=== PATIENT | female | born 1970 | race Caucasian/White ===

== ENCOUNTER → 2017-01-31 | Day surgery (SDC) | payer OTHER ==
[~2017-01-31] VITALS: Ht 152.4 cm; Wt 99.8 kg
[~2017-01-31] MED LIST: ACETAMINOPHEN 650 MG SUPP As Ordered ONE; BUPIVACAINE/EPIN 0.25% 30 ML VIAL As Ordered ONE; BUSP5TA PO; FLUORESCEIN 10% (100MG/ML) 5 ML VIAL As Ordered ONE; GLYCOPYRROLATE INJ 0.2 MG/ML 2 ML VIAL As Ordered ONE; HYDR25TAB PO; HYDROmorphone HCL 1 MG/ML SYRINGE (J1170) IV PRN; IBUPROFEN 800 MG TAB PO SCH; KETOROLAC 30 MG/ML VIAL (J1885) IV PRN; KETOROLAC 60 MG/2 ML VIAL (J1885) As Ordered ONE; LIDOCAINE 2% INJ 100 MG/5 ML SDV (FOR ANES.) As Ordered ONE; LR 1,000 ML IV SCH; MEPERIDINE INJ 25 MG/ML VIAL (J2175) As Ordered ONE; METHYLENE BLUE 0.5% (5MG/ML) 10 ML AMP (PROVAYBLUE)(Q9968 PER 1MG) As Ordered ONE; METOCLOPRAMIDE INJ 10MG/2ML VIAL (J2765) As Ordered ONE; MIDAZOLAM INJ 2 MG/2 ML VIAL (J2250) As Ordered ONE; NEOSTIGMINE 1MG/ML 5 ML SYRINGE (J2710) As Ordered ONE; OMEP20CA3 PO; ONDANSETRON 4MG/2ML VIAL (J2405) As Ordered ONE; ONDANSETRON 4MG/2ML VIAL (J2405) IV PRN; PERCOCET 5MG/325MG TAB PO PRN; PERCOCET PO; PROPOFOL 200 MG/20 ML VIAL As Ordered ONE; ROCURONIUM BROMIDE 50 MG/5 ML VIAL As Ordered ONE; dexameTHASONE 4 MG/ML 1ML VIAL (J1100) As Ordered ONE; diphenhydrAMINE INJ 50MG/ML VIAL (J1200) IV PRN; fentaNYL 100 MCG/2 ML INJECTION (J3010) As Ordered ONE; fentaNYL 100 MCG/2 ML INJECTION (J3010) IV PRN
[2017-01-31 08:54] LABS: MEAN CORPUSCULAR HEMOGLOBIN 29.3 pg (27.0-33.0); MEAN CORPUSCULAR HGB CONC 33.5 g/dl (32.0-36.5); MEAN CORPUSCULAR VOLUME 87.6 fl (80.0-96.0); RED CELL DISTRIBUTION WIDTH 12.2 % (11.5-14.5); WHITE BLOOD COUNT 7.6 K/mm3 (4.0-10.0)
[2017-01-31] MEDS: MEPERIDINE INJ 25 MG/ML VIAL (J2175) IV PRN ×2 (13:28→13:40)
[2017-01-31 16:00] VITALS: BP 123/74
--- NOTE | 2017-01-31 21:34 | RO ---
DATE OF PROCEDURE: 01/31/2017 June is a 48-year-old female, status post hysterectomy with a history of left ovarian cyst and extensive pelvic pain. After counseling, a decision was made for an operative laparoscopy, removal of the left pelvic mass, possible lysis of adhesions. PREOPERATIVE DIAGNOSIS: 1. Left ovarian cyst. 2. Pelvic pain. POSTOPERATIVE DIAGNOSIS: 1. Left ovarian cyst. 2. Pelvic pain. 3. Hydrosalpinx with right ovarian cyst, bowel and omental adhesion. PROCEDURE: 1. Operative laparoscopy. 2. Removal of both tubes and ovaries and pelvic mass. 3. Extensive lysis of adhesion. 4. Cystoscopy. SURGEON: Dr. Ham Arriaza EMBEDDED LINUX ENGINEER: ANESTHESIA: Upon laparoscopy, the omentum was found to be adherent to the anterior abdominal wall, the left pelvic sidewall, the posterior cul-de-sac and the right pelvic sidewall, along with multiple loops of bowel. The right ovary was also adherent to the posterior cul-de-sac as well as a right hydrosalpinx noted adherent to the vaginal cuff. The left ovary was buried on the sidewall with the adhesions, bowel and omental adhesions to that side. It took approximately 40 minutes to lyse the adhesions prior to being able to identify the ovaries and the hydrosalpinx. Cystoscopy bilateral ureters were identified with yellow dye coming out of both ureters. No evidence of any bladder injury. DESCRIPTION OF PROCEDURE: After obtaining informed consent, the patient was taken to the operating room where general anesthetic was found to be adequate. She was then draped and prepped in the usual sterile fashion in the dorsal lithotomy position. At this point, a Hackett catheter was placed in the bladder for drainage. A sponge stick was placed in the vagina for manipulation. We then turned our attention to the abdomen where a 5 mm infraumbilical incision was made. Using the Veress needle, the abdomen was then insufflated with CO2 gas to approximately 3.5 liters. I then placed a 5 mm right lateral port under direct visualization and a 12 mm port was placed on the left side under direct visualization. Upon entering the abdominal cavity, multiple omental adhesions and loops of bowel were noted to be adherent to the posterior cul-de-sac, the sidewall, the vaginal cuff. We were unable to fully visualize the pelvic anatomy. The patient was placed in Trendelenburg to push the bowel slightly cephalad. At this point, using the KEYLA Harmonic scalpel with a series of blunt and sharp dissection, the omental adhesions to the anterior abdominal wall were taken down as well as the one to the vaginal cuff and the pelvic sidewall. After retracting the omental adhesions, we were able to identify the right ovary, which was adherent to the vaginal cuff as well as the lateral wall. The Falope segment of the fallopian tube was found with the hydrosalpinx adherent to the vaginal cuff. At this point, using the KEYLA Harmonic scalpel as well as some sharp and blunt dissection, the adhesions were taken off the vaginal cuff, the fallopian tube, as well as the ovary was held in tension and using the KEYLA Harmonic scalpel, we then transect the fallopian tube as well as the ovary. A small remnant of the ovary remained. We were not able to take that off for fear of excessive bleeding. At this point, these were taken out and sent to pathology. We then were able to free the bowel off the pelvic sidewall, as well as the vaginal cuff. The left ovary and tube was identified, and this was also transected and removed. At this point, given the extensive lysis of adhesions and the fact that we were working so close to the pelvic sidewall, I decided to perform a cystoscopy to make sure there was no bladder or urethral injury. 1 mL of furosine was given by the anesthesiologist. I then went down to the vagina. The bladder was retrograde filled with 250 mL of normal saline. A cystoscopy was performed. Bilateral ureteral jets noted. No evidence of any bladder injury noted. At this point, the cystoscope was removed. A Hackett catheter was replaced back in the bladder. I then turned my attention abdominally, and the laparoscopic ports were closed using #0 Vicryl in the fascia and #4-0 Monocryl in the skin with Dermabond. 0.25% Marcaine was placed for postoperative pain. The patient tolerated procedure well. She was then transferred to recovery room in stable condition. Copy To: [facility] Edited [facility] 02/01/2017 ERIN
== END | disposition home or self-care (01) ==
LOC: M SDC 08:33
PROVIDERS: ATTEND Obstetrics & Gynecology
DX: N83.202 Unspecified ovarian cyst, left side (principal); R10.2 Pelvic and perineal pain; N70.11 Chronic salpingitis; N83.201 Unspecified ovarian cyst, right side; K66.0 Peritoneal adhesions (postprocedural) (postinfection); I10 Essential (primary) hypertension; K21.9 Gastro-esophageal reflux disease without esophagitis; I71.4 Abdominal aortic aneurysm, without rupture; K57.32 Diverticulitis of large intestine without perforation or abscess without bleeding; M12.9 Arthropathy, unspecified; F41.9 Anxiety disorder, unspecified; G43.909 Migraine, unspecified, not intractable, without status migrainosus; J45.909 Unspecified asthma, uncomplicated; R06.83 Snoring; Z88.1 Allergy status to other antibiotic agents; Z79.899 Other long term (current) drug therapy; Z98.51 Tubal ligation status; Z90.710 Acquired absence of both cervix and uterus

== ENCOUNTER → 2017-05-16 | Outpatient (REF) | payer OTHER ==
[~2017-05-16] MED LIST changes: -ACETAMINOPHEN 650 MG SUPP As Ordered ONE; -BUPIVACAINE/EPIN 0.25% 30 ML VIAL As Ordered ONE; -FLUORESCEIN 10% (100MG/ML) 5 ML VIAL As Ordered ONE; -GLYCOPYRROLATE INJ 0.2 MG/ML 2 ML VIAL As Ordered ONE; -HYDROmorphone HCL 1 MG/ML SYRINGE (J1170) IV PRN; -IBUPROFEN 800 MG TAB PO SCH; -KETOROLAC 30 MG/ML VIAL (J1885) IV PRN; -KETOROLAC 60 MG/2 ML VIAL (J1885) As Ordered ONE; -LIDOCAINE 2% INJ 100 MG/5 ML SDV (FOR ANES.) As Ordered ONE; -LR 1,000 ML IV SCH; -MEPERIDINE INJ 25 MG/ML VIAL (J2175) As Ordered ONE; -METHYLENE BLUE 0.5% (5MG/ML) 10 ML AMP (PROVAYBLUE)(Q9968 PER 1MG) As Ordered ONE; -METOCLOPRAMIDE INJ 10MG/2ML VIAL (J2765) As Ordered ONE; -MIDAZOLAM INJ 2 MG/2 ML VIAL (J2250) As Ordered ONE; -NEOSTIGMINE 1MG/ML 5 ML SYRINGE (J2710) As Ordered ONE; -ONDANSETRON 4MG/2ML VIAL (J2405) As Ordered ONE; -ONDANSETRON 4MG/2ML VIAL (J2405) IV PRN; -PERCOCET 5MG/325MG TAB PO PRN; -PROPOFOL 200 MG/20 ML VIAL As Ordered ONE; -ROCURONIUM BROMIDE 50 MG/5 ML VIAL As Ordered ONE; -dexameTHASONE 4 MG/ML 1ML VIAL (J1100) As Ordered ONE; -diphenhydrAMINE INJ 50MG/ML VIAL (J1200) IV PRN; -fentaNYL 100 MCG/2 ML INJECTION (J3010) As Ordered ONE; -fentaNYL 100 MCG/2 ML INJECTION (J3010) IV PRN
== END ==
LOC: M LAB REF 16:07
PROVIDERS: ATTEND Physician Assistant
DX: M54.5 Low back pain (principal)

== ENCOUNTER → 2018-09-23 | Outpatient (CLI) | payer OTHER | LOC: M WHC 08:27 | DX: Z12.31 Encounter for screening mammogram for malignant neoplasm of breast (principal); Z78.0 Asymptomatic menopausal state | CPT/HCPCS: 77067 ==

== ENCOUNTER 2018-12-24 12:33 | Emergency (ER) | payer OTHER ==
[~2018-12-24] VITALS: Ht 152.4 cm; Wt 98.6 kg
--- NOTE | 2018-12-24 13:31 | REP ---
Clinical: Pain/injury. Technique: AP, lateral, bilateral oblique views. Findings: The carpal bones, surrounding osseous structures, soft tissues, and joint spaces are normal. There is no evidence for acute fracture or dislocation. No subcutaneous emphysema or radiodense foreign body. Impression: Normal wrist series. No acute fracture or dislocation Electronically Signed by Manolo Macedo MD 12/24/2018 01:23 P
[2018-12-24] MEDS ORDERED: ROBA500T PO (15:12)
[2018-12-24 15:22] VITALS: BP 132/86
== END 2018-12-24 15:25 | disposition home or self-care (01) ==
LOC: M ED 12:33
DX: S69.91XA Unspecified injury of right wrist, hand and finger(s), initial encounter (principal); M54.9 Dorsalgia, unspecified; W00.0XXA Fall on same level due to ice and snow, initial encounter; Y92.89 Other specified places as the place of occurrence of the external cause; Y99.0 Civilian activity done for income or pay; I10 Essential (primary) hypertension; F41.9 Anxiety disorder, unspecified; K57.92 Diverticulitis of intestine, part unspecified, without perforation or abscess without bleeding; K58.9 Irritable bowel syndrome, unspecified; Z88.1 Allergy status to other antibiotic agents; Z79.899 Other long term (current) drug therapy

== ENCOUNTER → 2019-11-30 | Outpatient (CLI) | payer OTHER ==
[~2019-11-30] MED LIST changes: +OMEP1CAP73 PO; -OMEP20CA3 PO; +ROBA500T PO
--- NOTE | 2019-11-30 16:32 | REPMRS ---
Patient History The patient states she had a clinical breast exam in November 2019.Family history of colorectal cancer at age 50 or over in mother, breast cancer at age 50 or over in maternal grandmother. No Hormone Replacement Therapy Digital Woman Screen Mammo: November 30, 2019 - Exam #: [id number] Bilateral CC and MLO view(s) were taken. Technologist: Agustina Lowe, Technologist Prior study comparison: September 23, 2018, bilateral digital woman screen mammo performed at [facility]. May 31, 2015, digital woman screen mammo performed at [facility]. February 25, 2014, digital woman screen mammo performed at [facility]. FINDINGS: There are scattered fibroglandular densities. There has been no change in the appearance of the mammogram from the prior studies. There is a mild amount of scattered fibroglandular density which is fairly symmetric. There is no interval development of dominant mass, architectural distortion, or grouped microcalcification suggestive of malignancy. 3-D tomosynthesis shows no additional findings. Assessment: BI-RADS/ACR category 1 mammogram. Negative Mammogram. Recommendation Routine screening mammogram of both breasts in 1 year (for women over age 40). This patient's Lifetime Breast Cancer Risk is estimated at 12.5 %. This mammogram was interpreted with the aid of an FDA-approved computer-aided dectection system. Electronically Signed By: Devon Cole MD 11/30/19 [id number]
== END ==
LOC: M WHC 13:34
PROVIDERS: ATTEND Nurse Practitioner Women's Health
DX: Z12.31 Encounter for screening mammogram for malignant neoplasm of breast (principal); Z80.0 Family history of malignant neoplasm of digestive organs; Z80.3 Family history of malignant neoplasm of breast

== ENCOUNTER → 2019-11-30 | Outpatient (REF) | payer OTHER | LOC: M WHC 17:10 | PROVIDERS: ATTEND Nurse Practitioner Women's Health | DX: Z12.72 Encounter for screening for malignant neoplasm of vagina (principal); Z77.9 Other contact with and (suspected) exposures hazardous to health | CPT/HCPCS: 87624; G0123 ==

== ENCOUNTER → 2020-12-15 | Outpatient (CLI) | payer OTHER ==
[~2020-12-15] MED LIST changes: +HYDR-3490 PO; -HYDR25TAB PO
--- NOTE | 2020-12-15 14:36 | REPMRS ---
Patient History The patient states she has not had a clinical breast exam in over a year. Family history of colorectal cancer at age 50 or over in mother, breast cancer at age 50 or over in maternal grandmother. No Hormone Replacement Therapy Digital Woman Screen Mammo: December 15, 2020 - Exam #: [id number] Bilateral CC and MLO view(s) were taken. Technologist: Karon Hawkins, Technologist Prior study comparison: November 30, 2019, bilateral digital woman screen mammo performed at [facility]. September 23, 2018, bilateral digital woman screen mammo performed at [facility]. May 31, 2015, digital woman screen mammo performed at [facility]. FINDINGS: The breast tissue is almost entirely fat. The Volpara volumetric breast density category is: A. There has been no change in the appearance of the mammogram from the prior studies. There is no interval development of dominant mass, architectural distortion, or grouped microcalcification typical of malignancy. 3-D tomosynthesis shows no additional findings. Assessment: BI-RADS/ACR category 1 mammogram. Negative Mammogram. Recommendation Routine screening mammogram of both breasts in 1 year (for women over age 40). This patient's [facility] Lifetime Breast Cancer RIsk is estimated at 12.3 %. This mammogram was interpreted with the aid of an FDA-approved computer-aided dectection system. Electronically Signed By: Devon Cole MD 12/15/20 [id number]
== END ==
LOC: M WHC 13:00
PROVIDERS: ATTEND Student in an Organized Health Care Education/Training Program
DX: Z12.31 Encounter for screening mammogram for malignant neoplasm of breast (principal)

== ENCOUNTER → 2021-05-14 | Outpatient (CLI) | payer OTHER ==
[~2021-05-14] MED LIST changes: +GASTROGRAFIN SOLUTION 30ML (Q9963) As Ordered ONE; +ISOVUE-370 76% 100ML VIAL As Ordered ONE
[2021-05-14 13:03] LABS: BASO % 0.3 % (0.0-1.0); EOS # 0.2 10^3/uL (0.0-0.5); EOS % 1.2 % (0.0-3.0); HEMATOCRIT 43.2 % (36.0-47.0); HEMOGLOBIN 13.9 g/dl (12.0-15.5); LYMPH # 1.8 10^3/uL (1.5-5.0); LYMPH % 14.2 % (24.0-44.0); MEAN CORPUSCULAR HEMOGLOBIN 26.5 pg (27.0-33.0); MEAN CORPUSCULAR HGB CONC 32.2 g/dl (32.0-36.5); MEAN CORPUSCULAR VOLUME 82.4 fl (80.0-96.0); MONO % 8.2 % (2.0-8.0); NEUTROPHILS # 9.5 10^3/uL (1.5-8.5); NEUTROPHILS % 75.5 % (36.0-66.0); PLATELET COUNT, AUTOMATED 330 10^3/uL (150-450); RED BLOOD COUNT 5.24 10^6/uL (4.00-5.40); WHITE BLOOD COUNT 12.5 10^3/uL (4.0-10.0)
[2021-05-14 13:42] LABS: ALBUMIN 3.6 GM/DL (3.2-5.2); ALT/SGPT 21 U/L (12-78); BILIRUBIN,TOTAL 0.7 MG/DL (0.2-1.0); BLOOD UREA NITROGEN 15 MG/DL (7-18); CARBON DIOXIDE LEVEL 26 MEQ/L (21-32); CHLORIDE LEVEL 106 MEQ/L (98-107); CREATININE FOR GFR 0.52 MG/DL (0.55-1.30); GLOMERULAR FILTRATION RATE > 60.0 (>51); GLUCOSE, FASTING 79 MG/DL (70-100); LIPASE 74 U/L (73-393); POTASSIUM SERUM 4.1 MEQ/L (3.5-5.1); SODIUM LEVEL 138 MEQ/L (136-145); TOTAL PROTEIN 7.2 GM/DL (6.4-8.2)
--- NOTE | 2021-05-14 14:51 | REP ---
INDICATION: LLQ PAIN, NAUSEA WITH VOMITING- LABS FIRST. COMPARISON: Pelvic ultrasound 11/07/2014, CT 08/22/2014 TECHNIQUE: Bolus 100 mL Isovue 370 and oral Gastrografin mixture per our bowel contrast protocol with scanning through the abdomen and pelvis with coronal and sagittal reconstructions. FINDINGS: CT abdomen: The lung bases are clear. Heart not enlarged and there is no pericardial thickening or effusion. No hiatal hernia. The liver, spleen, gallbladder, pancreas, adrenal glands and kidneys are normal. The small bowel loops in the abdomen proper are without abnormal dilatation or air-fluid levels. Abdominal portion of the colon from cecum through the mid left colon at the iliac crest to unremarkable. Lung window review of all CT slices shows no perforation or free air. There is a fusion of the L4-5 vertebral bodies as a block vertebrae as well as their posterior elements. There is no spondylolysis or spondylolisthesis. There is a dextrorotatory curve at the thoracolumbar junction. No compression deformities in the spine. Visualized ribs intact. CT pelvis: There is patchy infiltration of the pericolonic fat at the junction of the distal left colon and proximal sigmoid with some adjacent thickening of the lateral conal fascia. Diverticulosis seen at this site and these findings represent early diverticulitis without perforation or abscess. The mid to distal sigmoid and rectum were unremarkable. The uterus is absent and the vaginal cuff intact. There is a 3.3 x 2.7 x 2.4 cm left ovary predominantly fluid density and smaller than on the previous study in 2013. I do not see any right adnexal mass. Do not see pelvic free fluid or adenopathy. There is no ventral or inguinal hernia nor pathologic sized inguinal adenopathy. Sacrum, SI joints, pelvis and hips show minimal degenerative changes. IMPRESSION: 1. Early diverticulitis involving the distal left colon at junction with the proximal sigmoid in the left lower quadrant without perforation or abscess. Trace thickening of the lateral conal fascia but no generalized pelvic ascites. 2. Right adnexa grossly unremarkable the left ovary has a cystic appearance 3.3 x 2.7 x 2.4 cm, smaller than on the previous CT in 2013. 3. There are no other significant or acute findings. <Electronically signed by Nathaniel Lucio > 05/14/21 [id number]
== END ==
LOC: M RAD 12:09
PROVIDERS: ATTEND Physician Assistant
DX: K57.92 Diverticulitis of intestine, part unspecified, without perforation or abscess without bleeding (principal); R10.814 Left lower quadrant abdominal tenderness; R11.2 Nausea with vomiting, unspecified
CPT/HCPCS: 36415; 74177; 80053; 83690; 85025; Q9963; Q9967

== ENCOUNTER → 2022-03-04 | Outpatient (CLI) | payer OTHER ==
[~2022-03-04] MED LIST changes: -GASTROGRAFIN SOLUTION 30ML (Q9963) As Ordered ONE; -ISOVUE-370 76% 100ML VIAL As Ordered ONE
== END ==
LOC: M WHC 09:59
PROVIDERS: ATTEND Student in an Organized Health Care Education/Training Program
DX: Z12.31 Encounter for screening mammogram for malignant neoplasm of breast (principal); Z80.0 Family history of malignant neoplasm of digestive organs; Z80.3 Family history of malignant neoplasm of breast

== ENCOUNTER → 2023-04-01 | Outpatient (CLI) | payer OTHER | LOC: M WHC 14:22 | PROVIDERS: ATTEND Student in an Organized Health Care Education/Training Program | DX: Z12.31 Encounter for screening mammogram for malignant neoplasm of breast (principal) ==

== ENCOUNTER → 2023-08-26 | Outpatient (CLI) | payer OTHER | LOC: M WHC 15:10 | PROVIDERS: ATTEND Nurse Practitioner Family | DX: N83.202 Unspecified ovarian cyst, left side (principal); Z90.710 Acquired absence of both cervix and uterus; Z90.722 Acquired absence of ovaries, bilateral ==

== ENCOUNTER 2023-12-09 07:43 | Emergency (ER) | payer OTHER ==
[~2023-12-09] VITALS: Ht 152.4 cm; Wt 100.1 kg
[2023-12-09 11:32] VITALS: BP 151/93; TEMP 97.3; O2SAT 97
== END 2023-12-09 12:22 | disposition home or self-care (01) ==
LOC: M ED 07:43
DX: S76.111A Strain of right quadriceps muscle, fascia and tendon, initial encounter (principal); W18.41XA Slipping, tripping and stumbling without falling due to stepping on object, initial encounter; I10 Essential (primary) hypertension; F41.9 Anxiety disorder, unspecified; J45.909 Unspecified asthma, uncomplicated; K58.9 Irritable bowel syndrome, unspecified; Z87.442 Personal history of urinary calculi; Z88.1 Allergy status to other antibiotic agents; Y92.9 Unspecified place or not applicable; Y93.89 Activity, other specified; Y99.0 Civilian activity done for income or pay; Z79.899 Other long term (current) drug therapy

== ENCOUNTER → 2024-04-07 | Outpatient (CLI) | payer OTHER | LOC: M WHC 10:05 | PROVIDERS: ATTEND Nurse Practitioner Family | DX: Z12.31 Encounter for screening mammogram for malignant neoplasm of breast (principal); R92.313 Mammographic fatty tissue density, bilateral breasts ==

== ENCOUNTER → 2024-04-07 | Outpatient (REF) | payer OTHER ==
[2024-04-09 13:42] LABS: HPV APTIMA Not Detected (Not Detected)
== END ==
LOC: M SFHCWAGY 14:58
PROVIDERS: ATTEND Nurse Practitioner Family
DX: Z12.72 Encounter for screening for malignant neoplasm of vagina (principal); Z11.51 Encounter for screening for human papillomavirus (HPV)
CPT/HCPCS: 87624; G0123

== ENCOUNTER → 2025-07-12 | Outpatient (CLI) | payer OTHER | LOC: M WUC 09:35 | PROVIDERS: ATTEND Internal Medicine Rheumatology | DX: R76.8 Other specified abnormal immunological findings in serum (principal) ==

== ENCOUNTER → 2025-07-12 | Outpatient (REF) | payer OTHER ==
[2025-07-12 16:13] LABS: APPEARANCE, URINE CLEAR (CLEAR); BACTERIA, URINE AUTO NEGATIVE (NEGATIVE); BILIRUBIN, URINE AUTO NEGATIVE (NEGATIVE); BLOOD, URINE BLOOD NEGATIVE (NEGATIVE); GLUCOSE, URINE (UA) AUTO NEGATIVE (NEGATIVE); KETONE, URINE AUTO NEGATIVE (NEGATIVE); LEUKOCYTE ESTERASE, URINE AUTO NEGATIVE (NEGATIVE); MUCUS, URINE SMALL (NEGATIVE); NITRITE, URINE AUTO NEGATIVE (NEGATIVE); PROTEIN, URINE AUTO NEGATIVE (NEGATIVE); RBC, URINE AUTO 0 /HPF (0-3); SPECIFIC GRAVITY URINE AUTO 1.019 (1.002-1.035); SQUAMOUS EPITHELIAL CELL UR AU 4 /HPF (0-6); UROBILINOGEN, URINE AUTO 0.2 mg/dL (0.0-2.0); WBC, URINE AUTO 1 /HPF (0-3)
[2025-07-12 16:30] LABS: TOTAL PROTEIN,RANDOM URINE 10.8 MG/DL (0.0-14.0)
[2025-07-12 17:00] LABS: C REACTIVE PROTEIN QUANTITATIV 0.55 MG/DL (<1.0); COMPLEMENT C4 51.8 MG/DL (12-36)
[2025-07-12 17:01] LABS: ALT/SGPT 27 U/L (7.0-40); AST/SGOT 20 U/L (<34); BASO # 0.1 10^3/uL (0.0-0.2); BASO % 0.8 % (0.0-1.0); CALCIUM LEVEL 9.8 MG/DL (8.5-10.1); CARBON DIOXIDE LEVEL 31 MMOL/L (20-31); CHLORIDE LEVEL 102 MMOL/L (98-107); CREATININE FOR GFR 0.64 MG/DL (0.55-1.30); EOS # 0.2 10^3/uL (0.0-0.5); EOS % 3.0 % (0.0-3.0); GLOMERULAR FILTRATION RATE > 90.0 (>51); LYMPH # 1.6 10^3/uL (1.5-5.0); LYMPH % 27.5 % (24.0-44.0); MONO # 0.7 10^3/uL (0.0-0.8); MONO % 11.2 % (2.0-8.0); NEUTROPHILS # 3.4 10^3/uL (1.5-8.5); NEUTROPHILS % 57.2 % (36.0-66.0); PLATELET COUNT, AUTOMATED 345 10^3/uL (150-450); POTASSIUM SERUM 3.7 MMOL/L (3.5-5.1); SODIUM LEVEL 142 MMOL/L (136-145)
[2025-07-12 17:32] LABS: ERYTHROCYTE SEDIMENTATION RATE 18 mm/hr (0-30)
== END ==
LOC: M SFHCRHEU 09:09
PROVIDERS: ATTEND Internal Medicine Rheumatology
DX: R76.8 Other specified abnormal immunological findings in serum (principal); Z15.89 Genetic susceptibility to other disease; M25.50 Pain in unspecified joint; M53.9 Dorsopathy, unspecified; H04.123 Dry eye syndrome of bilateral lacrimal glands

== ENCOUNTER 2025-09-12 14:21 | Emergency (ER) | payer OTHER ==
[~2025-09-12] VITALS: Ht 152.4 cm; Wt 92.0 kg
[2025-09-12] MEDS ORDERED: SEMA0.5P (14:39)
[2025-09-12] MEDS ORDERED: PREG50CA3 (14:39)
[2025-09-12] MEDS: TETANUS/DIPHTH/ACEL. PERTUSSIS 0.5 ML SYR IM ONE (16:30)
[2025-09-12] MEDS: DERMABOND TOPICAL SKIN ADHESIVE TOP ONE (16:35)
[2025-09-12 16:58] VITALS: BP 138/82; TEMP 98; O2SAT 96
== END 2025-09-12 16:59 | disposition home or self-care (01) ==
LOC: M ED 14:21
DX: S01.81XA Laceration without foreign body of other part of head, initial encounter (principal); W22.8XXA Striking against or struck by other objects, initial encounter; K21.9 Gastro-esophageal reflux disease without esophagitis; J45.909 Unspecified asthma, uncomplicated; I10 Essential (primary) hypertension; K58.9 Irritable bowel syndrome, unspecified; Z88.1 Allergy status to other antibiotic agents; Y92.89 Other specified places as the place of occurrence of the external cause; Y99.0 Civilian activity done for income or pay; Y93.89 Activity, other specified; Z23 Encounter for immunization

== ENCOUNTER → 2025-09-29 | Outpatient (CLI) | payer OTHER ==
[~2025-09-29] MED LIST changes: +PREG50CA3; +SEMA0.5P
== END ==
LOC: M WHC 09:56
PROVIDERS: ATTEND Nurse Practitioner Family
DX: Z12.31 Encounter for screening mammogram for malignant neoplasm of breast (principal); R92.313 Mammographic fatty tissue density, bilateral breasts